=== PATIENT | female | born 1995 | race Caucasian/White ===

== ENCOUNTER → 2022-06-21 13:32 | Observation (INO) ==
[2022-06-21 12:35] LABS: Bacteria,Urine Few per hpf (None-Few); Bilirubin,Urine Negative (Negative); Blood,Urine Negative (Negative); Clarity,Urine Turbid (Clear); Color,Urine Light-Yellow (Yellow); Glucose,Urine (UA) Normal (Normal); Ketones,Urine Negative (Negative); Leukocyte Esterase,Urine Large (Negative); Mucus,Urine Few per lpf (None-Few); Nitrite,Urine Negative (Negative); PH,Urine 7.5 pH Units (5.0-8.0); Protein,Urine Negative (Neg-Trace); Specific Gravity,Urine 1.015 (1.010-1.025); Squamous Epithelial Cell,Urine Moderate per hpf (None-Few); Urobilinogen,Urine Normal (Normal)
== END | disposition home or self-care (01) ==
LOC: 1NENULAB
PROVIDERS: ADMIT Advanced Practice Midwife; ATTEND Advanced Practice Midwife

== ENCOUNTER 2022-07-24 17:32 | Inpatient (IN) ==
[~2022-07-24 17:32] MED LIST: *HR* Nalbuphine 10 MG/ML AMPUL IV PRN; Azithromycin 500 MG in 0.9 % Sodium Chloride 250 ML IVPB PRN; Famotidine 20 MG/2 ML VIAL IVP PRN; Metoclopramide 10 MG/2 ML VIAL IVP PRN; Naloxone 0.4 MG/ML INJ IVP PRN; Ondansetron 4 MG/2 ML VIAL IVP PRN
[2022-07-24] MEDS ORDERED: Ringers Solution, Lactated 1,000 ML IVC SCH (17:45)
[2022-07-24 19:00] LABS: Basophils # 0.1 K/mcL (0.0-0.2); Basophils % 0.7 %; Eosinophils # 0.1 K/mcL (0.0-0.6); Eosinophils % 0.6 %; Hematocrit 35.2 % (35.3-44.9); Hemoglobin 11.5 g/dL (11.5-15.4); Immature Granulocytes % 1.6 % (0-4); Lymphocytes # 2.4 K/mcL (0.6-4.6); Mean Corpuscular HGB Conc 32.7 g/dL (31.6-35.5); Mean Corpuscular Volume 88.7 fL (83.0-100.0); Mean Platelet Volume 9.7 fL (9.4-12.4); Monocytes % 8.2 %; Neutrophils # 8.7 K/mcL (1.6-8.9); Platelet Count 382 K/mcL (140-400); Red Blood Count 3.97 M/mcL (3.82-4.97); Red Cell Distribution Width 13.7 % (11.5-14.5); Segmented Neutrophils % 69.9 %; White Blood Count 12.5 K/mcL (4.3-11.1)
[2022-07-24] MEDS ORDERED: EPHEDrine sulfate 50 MG/10 ML VIAL IVP PRN (19:09)
[2022-07-24] MEDS ORDERED: Epidural Premix (fent/bupiv) 110 ML EP SCH (19:15)
[2022-07-24] MEDS ORDERED: Ondansetron 4 MG/2 ML VIAL ONE (21:19)
[2022-07-24 21:36] LABS: Amphetamine Screen,Urine Negative ng/mL (Cutoff=1000); Barbiturate Screen,Urine Negative ng/mL (Cutoff=200); Benzodiazepines Screen,Urine Negative ng/mL (Cutoff=200); Cannabinoid Screen,Urine Negative ng/mL (Cutoff = 50); Cocaine Screen,Urine Negative ng/mL (Cutoff= 300); Opiate Screen,Urine Negative ng/mL (Cutoff=300); Phencyclidine Screen,Urine Negative ng/mL (Cutoff=25)
[2022-07-24] MEDS ORDERED: Lidocaine/EPI 1:200k 2% PF 20 ML VIAL ONE (22:38)
[2022-07-24] MEDS ORDERED: *HR* Ropivacaine/PF 0.5% 20 ML VIAL ONE (22:38)
[2022-07-24] MEDS ORDERED: *HR* FentaNYL (PF) 100 MCG/2 ML VIAL ONE (22:44)
[2022-07-24] MEDS ORDERED: Oxytocin 30 UNIT/503 ML BAG IVC ONE (22:59)
[2022-07-25] MEDS ORDERED: Oxytocin 30 UNIT/503 ML BAG IVC SCH (02:40)
[2022-07-25] MEDS ORDERED: Lanolin 7 G OINT...G. TP PRN (02:40)
[2022-07-25] MEDS ORDERED: Benzocaine/Menthol 56 GM AEROSOL SPRAY TP PRN (02:40)
[2022-07-25] MEDS ORDERED: Ondansetron ODT 4 MG TAB.RAPDIS SL PRN (02:40)
[2022-07-25] MEDS: Ibuprofen 600 MG TABLET PO SCH ×3 (03:05→20:41)
[2022-07-25 05:13] LABS: Basophils % 0.2 %; Hematocrit 30.6 % (35.3-44.9); Hemoglobin 10.4 g/dL (11.5-15.4); Immature Granulocytes % 0.8 % (0-4); Lymphocytes # 1.8 K/mcL (0.6-4.6); Lymphocytes % 7.9 %; Mean Corpuscular Hemoglobin 29.4 pg (28.0-33.3); Mean Corpuscular Volume 86.4 fL (83.0-100.0); Mean Platelet Volume 9.6 fL (9.4-12.4); Monocytes # 1.5 K/mcL (0.0-1.3); Monocytes % 6.5 %; Platelet Count 316 K/mcL (140-400); Red Blood Count 3.54 M/mcL (3.82-4.97); Red Cell Distribution Width 13.6 % (11.5-14.5); Segmented Neutrophils % 84.6 %
[2022-07-25 05:17] LABS: Basophils # 0.1 K/mcL (0.0-0.2); Neutrophils # 19.1 K/mcL (1.6-8.9); White Blood Count 22.6 K/mcL (4.3-11.1)
[2022-07-25] MEDS: Acetaminophen 325 MG TABLET PO SCH ×3 (05:30→20:41)
[2022-07-25] MEDS ORDERED: Prenatal Vit/FA 1 EACH TABLET PO SCH (09:00)
[2022-07-25 20:21] VITALS: BP 120/79; PULSE 95; TEMP 98.2; O2SAT 97
[2022-07-25] MEDS ORDERED: hydrOXYzine pamoate 25 MG CAPSULE PO SCH (21:00)
== END 2022-07-26 00:47 | disposition home or self-care (01) | DRG 560 ==
LOC: 1NENULAB → 1NENUOBS 07-25 02:39
PROVIDERS: ADMIT Registered Nurse; ATTEND Registered Nurse